=== PATIENT | female | born 1975 | race Caucasian/White ===

== ENCOUNTER 2017-05-29 06:03 | Inpatient (IN) | payer OTHER ==
[2017-05-29] MEDS ORDERED: ceFOXitin 2 GM IVPREMIX* 2 GM/50 ML BAG ONE (07:02)
[2017-05-29] MEDS ORDERED: Scopolamine 1.5 mg* PATCH ONE (07:18)
[2017-05-29] MEDS ORDERED: Sodium Citrate/Citric Acid* 15 ML UDC ONE (07:18)
[2017-05-29] MEDS ORDERED: Morphine PF AMP (0.5MG/ML)* 5 MG/10 ML AMP ONE (07:21)
[2017-05-29] MEDS ORDERED: Phenylephrine INJ* 10 MG/ML 1 ML VIAL (10 MG) ONE (08:25)
[2017-05-29] MEDS ORDERED: OXYTOCIN* 10 UNITS/ML 1 ML VIAL ONE ×2 (08:25→08:52)
[2017-05-29] MEDS ORDERED: Ondansetron INJ* 2 MG/ML VIAL ONE (08:25)
[2017-05-29] MEDS ORDERED: oxyCODONE/Acetamin 5/325 MG* TAB PO PRN (09:25)
[2017-05-29] MEDS ORDERED: Witch Hazel PAD* JAR TOPICAL PRN (09:25)
[2017-05-29] MEDS ORDERED: Methylergonovine INJ* 0.2 MG/ML 1ML AMP IM ONE (09:25)
[2017-05-29] MEDS ORDERED: Nalbuphine* 20 MG/ML 1 ML VIAL IV PRN (09:29)
[2017-05-29] MEDS ORDERED: Naloxone* 0.4 MG/ML 1 ML VIAL IV PRN ×2 (09:29)
[2017-05-29] MEDS ORDERED: DiMENhydriNATE IV* 50 MG/ML VIAL IV PUSH PRN (09:29)
[2017-05-29] MEDS ORDERED: Ondansetron INJ* 2 MG/ML VIAL IV PRN (09:29)
[2017-05-29] MEDS ORDERED: Oxytocin in LR* 20 UNITS/1,000 ML BAG IVPB ONE (10:37)
[2017-05-29] MEDS: Ketorolac INJ* 30 MG/ML 1 ML VIAL IV PRN ×2 (10:51→17:24)
[2017-05-29] MEDS: Simethicone TAB* 80 MG TAB.CHEW PO SCH ×3 (13:44→20:54)
[2017-05-29] MEDS: Docusate CAP* 100 MG PO SCH ×2 (13:44→20:54)
[2017-05-30] MEDS: Ketorolac INJ* 30 MG/ML 1 ML VIAL IV PRN ×2 (00:02→06:04)
--- NOTE | 2017-05-30 02:51 | OP ---
DATE OF OPERATION: 05/29/17 - ROOM #[id number] DATE OF : 79 SURGEON: Linus Peres MD RADIOACTIVITY TECHNICIAN: Dr. Horan. ANESTHESIOLOGIST: Dr. Vincent. ANESTHESIA: Spinal. PRE-OP DIAGNOSES: 1. 39 weeks gestation with gestational diabetes mellitus, advanced maternal age , and suspected macrosomia. 2. History of section. POST-OP DIAGNOSES: 1. 39 weeks gestation with gestational diabetes mellitus, advanced maternal age , and suspected macrosomia. 2. History of section. OPERATIVE PROCEDURE: Repeat low transverse section. ESTIMATED BLOOD LOSS: 900 cc. URINE OUTPUT: 250 cc. IV FLUIDS: 2600 cc lactated Ringer's. INDICATIONS: This patient is a 41-year-old 4 para 1 who presented today for her scheduled repeat section. The patient's was complicated by advanced maternal age, morbid obesity, and gestational diabetes, requiring a fairly large amount of insulin overnight. In addition, the estimated weight was about 8.5 pounds about 4 weeks ago. She was extensively counseled for the procedure and the consent was signed. FINDINGS: Normal-appearing uterus, fallopian tubes, and ovaries. Modest amount of adhesions anteriorly around the lower uterine segment of the bladder and also posteriorly to the uterus with adhesions to bowel. Delivery was productive of a female weighing 12 pounds 9 ounces, with Apgars of 9 and 9. Time of delivery was 0823. COMPLICATIONS: None. DESCRIPTION OF PROCEDURE: The risks, benefits, and alternatives were described to the patient, and informed consent was obtained. The patient was taken to the operating room with IV running, where spinal anesthesia was induced and found to be adequate. The patient was prepped and draped in normal sterile fashion in the dorsal supine position with a leftward tilt. A Pfannenstiel skin incision was made with a scalpel through the patient's previous incision. This was carried down to the underlying fascia using the scalpel. The fascia was scored in the midline, and the incision was extended using Zazueta scissors. The fascia was dissected off the underlying rectus muscles using blunt and sharp dissection. The rectus muscles were in the midline using dissection with a Laura clamp. The peritoneum was then entered bluntly. A bladder blade was placed. A bladder flap was created sharply using Metzenbaum scissors. A low transverse uterine incision was then made with the scalpel. This was carried down to the amniotic membranes. The membranes were then ruptured, productive of clear fluid. The uterine incision was extended using blunt traction. The head was elevated to the level of the incision, and, with fundal pressure, the head delivered without difficulty. The shoulders then were also both delivered and the body followed. The had excellent tone and cried immediately on delivery. The cord was doubly clamped and cut. The infant was then handed to the awaiting recruitment assistant. Cord blood was collected. The placenta was delivered with manual extraction. The uterus was then exteriorized and cleared of all clots and debris. The uterine incision was then reapproximated using 0 Polysorb in a running-locked fashion. A second layer of imbricating 0 Polysorb sutures was then also placed for good hemostasis. The posterior cul-de-sac was irrigated with saline. The uterus was then returned to the abdomen. The incision was reinspected and still noted to be hemostatic. The peritoneum was closed with 2-0 chromic in a running fashion. The fascia was closed with 0 Polysorb in a running fashion. The subcutaneous tissues were copiously irrigated and made hemostatic using the Bovie. The subcutaneous tissues were then reapproximated using 2-0 chromic in interrupted sutures. The skin was then closed with . A sterile bandage was then placed over the incision. The patient tolerated the procedure well. Sponge, lap, and needle counts were correct x2. [id number]/[id number] #: [id number] MTDD
[2017-05-30 06:53] LABS: ABS Basophils 0 10^3/ul (0-0.2); ABS Eosinophils 0.1 10^3/ul (0-0.6); ABS Lymphocytes 1.2 10^3/ul (1.0-4.8); ABS Monocytes 0.7 10^3/ul (0-0.8); ABS Neutrophils 7.9 10^3/ul (1.5-7.7); ABS Nucleated RBC 0 10^3/ul; Eosinophil % 0.7 % (0-6); Hematocrit 24 % (35-47); Hemoglobin 8.6 g/dl (12.0-16.0); Mean Corpuscular HGB Conc 35 g/dl (31-36); Mean Corpuscular Hemoglobin 31 pg (27-31); Mean Corpuscular Volume 87 fL (80-97); Mean Platelet Volume 11 um3 (7.4-10.4); Nucleated Red Blood Cells % 0; Platelet Count 128 10^3/ul (150-450); Red Blood Count 2.82 10^6/ul (4.0-5.4); Red Cell Distribution Width 13 % (10.5-15); White Blood Count 9.8 10^3/ul (3.5-10.8)
[2017-05-30] MEDS: Simethicone TAB* 80 MG TAB.CHEW PO SCH ×4 (08:22→21:35)
[2017-05-30] MEDS: Docusate CAP* 100 MG PO SCH ×3 (08:22→21:35)
[2017-05-30] MEDS: Ferrous Gluconate TAB* 324 MG TAB PO SCH ×2 (08:22→21:35)
[2017-05-30] MEDS ORDERED: Measles, Mumps,Rubella VACC* 0.5 ML/VIAL SUBCUT ONE (09:00)
[2017-05-30] MEDS: Ibuprofen TAB* 600 MG PO SCH ×2 (12:07→17:54)
[2017-05-30] MEDS: Acetaminophen TAB* 325 MG PO PRN ×2 (12:50→17:54)
[2017-05-31] MEDS: Ibuprofen TAB* 600 MG PO SCH ×5 (01:12→21:53)
[2017-05-31] MEDS: oxyCODONE/Acetamin 5/325 MG* TAB PO PRN ×4 (01:12→20:04)
[2017-05-31] MEDS: Simethicone TAB* 80 MG TAB.CHEW PO SCH ×4 (07:54→21:54)
[2017-05-31] MEDS: Ferrous Gluconate TAB* 324 MG TAB PO SCH ×2 (07:54→21:53)
[2017-05-31] MEDS: Docusate CAP* 100 MG PO SCH ×3 (07:54→21:54)
[2017-05-31] MEDS ORDERED: guaiFENesin LIQ* 100 MG/5 ML UDC PO PRN (12:37)
[2017-05-31] MEDS ORDERED: Benzocaine/Menthol LOZ* 1 LOZENGE PO PRN (12:37)
[2017-06-01] MEDS: oxyCODONE/Acetamin 5/325 MG* TAB PO PRN ×2 (08:12→14:04)
[2017-06-01] MEDS: Docusate CAP* 100 MG PO SCH ×2 (08:12→14:04)
[2017-06-01] MEDS: Ferrous Gluconate TAB* 324 MG TAB PO SCH (08:13)
[2017-06-01] MEDS: Simethicone TAB* 80 MG TAB.CHEW PO SCH ×2 (08:13→14:04)
[2017-06-01] MEDS: Ibuprofen TAB* 600 MG PO SCH ×2 (08:13→14:04)
[2017-06-01 08:29] VITALS: BP 138/79
== END 2017-06-01 14:45 | disposition home or self-care (01) | DRG 765 ==
LOC: MCHOB 06:03
PROVIDERS: ADMIT Obstetrics & Gynecology; ATTEND Obstetrics & Gynecology
PROC: 10D00Z1 Extraction of Products of Conception, Low, Open Approach (ICD-10-PCS; principal; 2017-05-29 07:45)
DX: O34.211 Maternal care for low transverse scar from previous cesarean delivery (principal); Z68.42 Body mass index [BMI] 45.0-49.9, adult; E66.01 Morbid (severe) obesity due to excess calories; O24.429 Gestational diabetes mellitus in childbirth, unspecified control; O36.63X0 Maternal care for excessive fetal growth, third trimester, not applicable or unspecified; O99.214 Obesity complicating childbirth; Z3A.39 39 weeks gestation of pregnancy; Z37.0 Single live birth
CPT/HCPCS: 36415; 85025; A9270-GY; J0694; J1885; J2210; J2405; J2590